=== PATIENT | female | born 1995 | race Caucasian/White ===

== ENCOUNTER 2018-10-18 11:53 | Emergency (ER) | payer SELFPAY ==
[~2018-10-18] VITALS: Ht 160 cm; Wt 90.7 kg
[2018-10-18 12:15] VITALS: BP 143/88
--- NOTE | 2018-10-18 12:28 | PHYS DOC ---
Past Medical History Past Medical History: No Pertinent History Past Surgical History: No Surgical History Alcohol Use: None Drug Use: None Adult General Chief Complaint Chief Complaint: PAIN ON URINATION HPI HPI Patient is a 23 year old female presents to the ED complaining of dysuria 2 days ago. Patient states that she's had suprapubic abdominal pain. Describes the pain as cramping. Rates the pain as 4 out 10. Patient states that she's had difficulty urinating. Denies dysuria, vaginal discharge/bleeding, STD exposure, diarrhea, chest pain, shortness of breath or fever. Review of Systems Review of Systems Constitutional: Denies fever or chills [] Eyes: Denies change in visual acuity, redness, or eye pain [] HENT: Denies nasal congestion or sore throat [] Respiratory: Denies cough or shortness of breath [] Cardiovascular: No additional information not addressed in HPI [] GI: Denies abdominal pain, nausea, vomiting, bloody stools or diarrhea [] : Complains of dysuria. Denies hematuria [] Musculoskeletal: Denies back pain or joint pain [] Integument: Denies rash or skin lesions [] Neurologic: Denies headache, focal weakness or sensory changes [] All other systems were reviewed and found to be within normal limits, except as documented in this note. Physical Exam Physical Exam Constitutional: Well developed, well nourished, no acute distress, non-toxic appearance. [] HENT: Normocephalic, atraumatic Cardiovascular:Heart rate regular rhythm, no murmur [] Lungs & Thorax: Bilateral breath sounds clear to auscultation [] Abdomen: Bowel sounds normal, soft, no tenderness, no masses, no pulsatile masses. [] Skin: Warm, dry, no erythema, no rash. [] Back: No tenderness, no CVA tenderness. [] Neurologic: Alert and oriented X 3, normal motor function, normal sensory function, no focal deficits noted. [] Psychologic: Affect normal, judgement normal, mood normal. [] Current Patient Data Vital Signs Vital Signs Date Time Temp Pulse Resp B/P (MAP) Pulse Ox O2 Delivery O2 Flow Rate FiO2 10/18/18 12:15 97.4 71 20 143/88 (106) 95 Room Air 97.4 EKG EKG [] Radiology/Procedures Radiology/Procedures [] Course & Med Decision Making Course & Med Decision Making Pertinent Labs and Imaging studies reviewed. (See chart for details) []Patient had a drink of water in the ED and then told nurse she could not urinate and wanted to leave. Patient signed out AMA. Epi Disclaimer Epi Disclaimer This electronic medical record was generated, in whole or in part, using a voice recognition dictation system. Departure Departure Impression: Primary Impression: Urinary problem in female Disposition: 07 AGAINST MEDICAL ADVICE Condition: STABLE Referrals: NO PCP (PCP) MERCEDES CHA Oct 18, 2018 12:28
== END 2018-10-18 12:59 | disposition left against medical advice (07) ==
LOC: ER 11:53
DX: N39.9 Disorder of urinary system, unspecified (principal); R10.30 Lower abdominal pain, unspecified
CPT/HCPCS: 99281; 99282

== ENCOUNTER 2018-10-30 16:58 | Emergency (ER) | payer SELFPAY ==
[~2018-10-30] VITALS: Ht 160 cm; Wt 90.7 kg
[2018-10-30 17:02] VITALS: BP 140/72
[2018-10-30] MEDS ORDERED: ACETAMINOPHEN 500 MG TABLET PO ONE (17:15)
[2018-10-30] MEDS ORDERED: IBUPROFEN 200 MG TABLET. PO ONE (17:15)
[2018-10-30] MEDS ORDERED: AMOXICILLIN 250 MG CAPSULE. PO ONE (17:15)
[2018-10-30] MEDS ORDERED: LIDOCAINE 2% VISCOUS 15 ML SOLUTION. SWSW ONE (17:15)
[2018-10-30] MEDS ORDERED: predniSONE 10 MG TABLET PO ONE (17:15)
[2018-10-30] MEDS ORDERED: PRED50TA PO (17:21)
[2018-10-30] MEDS ORDERED: AMOX875T PO (17:21)
--- NOTE | 2018-10-30 17:22 | PHYS DOC ---
Past Medical History Past Medical History: No Pertinent History Past Surgical History: No Surgical History Additional Information: 1.5 PPD Alcohol Use: None Drug Use: None Adult General Chief Complaint Chief Complaint: SORE THROAT HPI HPI Patient is a 23 year old female who presents to the ED today with complaints of sore throat and subjective fevers for 2 days. Denies any cough or congestion. Review of Systems Review of Systems Constitutional: Reports fever Eyes: Denies change in visual acuity, redness, or eye pain [] HENT: Reports sore throat. Denies nasal congestion Respiratory: Denies cough or shortness of breath [] Cardiovascular: No additional information not addressed in HPI [] GI: Denies abdominal pain, nausea, vomiting, bloody stools or diarrhea [] : Denies dysuria or hematuria [] Musculoskeletal: Denies back pain or joint pain [] Integument: Denies rash or skin lesions [] Neurologic: Denies headache, focal weakness or sensory changes [] All other systems were reviewed and found to be within normal limits, except as documented in this note. Current Medications Current Medications Current Medications Medications (Trade) Dose Ordered Sig/Naomi Start Time Stop Time Status Last Admin Dose Admin Acetaminophen (Tylenol) 1,000 mg 1X ONCE 10/30/18 17:15 10/30/18 17:16 UNV Amoxicillin (Amoxil) 1,000 mg 1X ONCE 10/30/18 17:15 10/30/18 17:16 UNV Ibuprofen (Motrin) 600 mg 1X ONCE 10/30/18 17:15 10/30/18 17:16 UNV Lidocaine HCl (Viscous Lidocaine) 15 ml 1X ONCE 10/30/18 17:15 10/30/18 17:16 UNV Prednisone (Prednisone) 50 mg 1X ONCE 10/30/18 17:15 10/30/18 17:16 UNV Allergies Allergies Allergies Coded Allergies Type Severity Reaction Last Updated Verified No Known Drug Allergies 10/30/18 No Physical Exam Physical Exam Constitutional: Well developed, well nourished, no acute distress, non-toxic appearance. [] HENT: Normocephalic, atraumatic, bilateral external ears normal, oropharynx moist, no oral exudates, nose normal. [] Midline uvula. +3 tonsils with mild erythema and exudate bilaterally. +2 anterior cervical adenopathy. Airway is open. Patient tolerating secretions. Eyes: PERRLA, EOMI, conjunctiva normal, no discharge. [] Neck: Normal range of motion, no tenderness, supple, no stridor. [] Cardiovascular:Heart rate regular rhythm, no murmur [] Lungs & Thorax: Bilateral breath sounds clear to auscultation [] Abdomen: Bowel sounds normal, soft, no tenderness, no masses, no pulsatile masses. [] Skin: Warm, dry, no erythema, no rash. [] Back: No tenderness, no CVA tenderness. [] Extremities: No tenderness, no cyanosis, no clubbing, ROM intact, no edema. [] Neurologic: Alert and oriented X 3, normal motor function, normal sensory function, no focal deficits noted. [] Psychologic: Affect normal, judgement normal, mood normal. [] Current Patient Data Vital Signs Vital Signs Date Time Temp Pulse Resp B/P (MAP) Pulse Ox O2 Delivery O2 Flow Rate FiO2 10/30/18 17:02 102.1 124 20 140/72 (94) 98 Room Air 102.1 EKG EKG [] Radiology/Procedures Radiology/Procedures [] Course & Med Decision Making Course & Med Decision Making Pertinent Labs and Imaging studies reviewed. (See chart for details) This is a 23-year-old female patient in the ED with physical exam consistent of tonsillitis, she also has a fever temperature 102.1. Was given Tylenol Motrin and started on amoxicillin in the ED. Also given prednisone. Discharged to home with prednisone and amoxicillin. Saltwater gargles recommended. Tylenol/Motrin for pain or fever. Dragon Disclaimer Dragon Disclaimer This electronic medical record was generated, in whole or in part, using a voice recognition dictation system. Departure Departure Impression: Primary Impression: Acute tonsillitis Additional Impression: Fever Disposition: HOME, SELF-CARE Condition: STABLE Referrals: NO PCP (PCP) BRYCE SULLIVAN MD follow up in 1 week Patient Instructions: Tonsillitis Additional Instructions: You have acute tonsillitis and a fever. We put you on antibiotics, ensure you complete them. Take Tylenol/Motrin as needed for pain or fever. Use saltwater gargles for sore throat. Take the prescribed prednisone until completed. Follow- up with your own doctor the provided ENT in 1-2 weeks. Come back to the ED at any point symptoms worsen. Scripts Amoxicillin (AMOXICILLIN) 875 Mg Tablet 1 TAB PO BID, #20 TAB Prov: DILCIA HARE MOUNTING MACHINE OPERATOR 10/30/18 Prednisone (PREDNISONE) 50 Mg Tablet 1 TAB PO DAILY, #5 TAB Prov: DILCIA HARE MOUNTING MACHINE OPERATOR 10/30/18 Problem Qualifiers Primary Impression: Acute tonsillitis Pharyngitis/tonsillitis etiology: unspecified etiology Qualified Codes: J03.90 - Acute tonsillitis, unspecified Additional Impression: Fever Fever type: unspecified Qualified Codes: R50.9 - Fever, unspecified DILCIA HARE MOUNTING MACHINE OPERATOR Oct 30, 2018 17:22
== END 2018-10-30 17:51 | disposition home or self-care (01) ==
LOC: ER 16:58
DX: J03.90 Acute tonsillitis, unspecified (principal); F17.200 Nicotine dependence, unspecified, uncomplicated
CPT/HCPCS: 99284; J7512

== ENCOUNTER 2018-11-10 20:28 | Emergency (ER) | payer SELFPAY ==
[~2018-11-10] VITALS: Ht 162.6 cm; Wt 90.7 kg
[~2018-11-10 20:28] MED LIST: AMOX875T PO; PRED50TA PO
[2018-11-10 20:43] VITALS: BP 133/76
[2018-11-10] MEDS ORDERED: CLIN150C14 PO (20:59)
--- NOTE | 2018-11-10 20:59 | PHYS DOC ---
Past Medical History Past Medical History: No Pertinent History Past Surgical History: No Surgical History Alcohol Use: None Drug Use: None Adult General Chief Complaint Chief Complaint: ABSCESS HPI HPI Patient is a 23 year old female who presents to the ED today with periorbital cellulitis that began after she took you asked her right upper eyebrow week ago. Denies any vision loss. Review of Systems Review of Systems Constitutional: Denies fever or chills [] Eyes: Reports periorbital cellulitis. Denies change in visual acuity, redness, or eye pain [] Neurologic: Denies headache, focal weakness or sensory changes [] All other systems were reviewed and found to be within normal limits, except as documented in this note. Current Medications Current Medications Current Medications Medications (Trade) Dose Ordered Sig/Naomi Start Time Stop Time Status Last Admin Dose Admin Ceftriaxone Sodium (Rocephin Im) 1 gm 1X ONCE 11/10/18 21:15 11/10/18 21:16 Clindamycin HCl (Cleocin) 450 mg 1X ONCE 11/10/18 21:15 11/10/18 21:16 Allergies Allergies Allergies Coded Allergies Type Severity Reaction Last Updated Verified No Known Drug Allergies 10/30/18 No Physical Exam Physical Exam Constitutional: Well developed, well nourished, no acute distress, non-toxic appearance. [] HENT: Normocephalic, atraumatic, bilateral external ears normal, oropharynx moist, no oral exudates, nose normal. [] Eyes: Right upper eyebrow lateral aspect with scarring consistent with piercing. There is some mild periorbital cellulitis noted around the right upper and lower eyelid. There is no infection in the eye/conjunctiva. There is no entrapment syndrome. PERRLA, EOMI, conjunctiva normal, no discharge. [] Back: No tenderness, no CVA tenderness. [] Extremities: No tenderness, no cyanosis, no clubbing, ROM intact, no edema. [] Neurologic: Alert and oriented X 3, normal motor function, normal sensory function, no focal deficits noted. [] Psychologic: Affect normal, judgement normal, mood normal. [] Current Patient Data Vital Signs Vital Signs Date Time Temp Pulse Resp B/P (MAP) Pulse Ox O2 Delivery O2 Flow Rate FiO2 11/10/18 20:43 98.2 90 16 133/76 (95) 97 Room Air 98.2 EKG EKG [] Radiology/Procedures Radiology/Procedures [] Course & Med Decision Making Course & Med Decision Making Pertinent Labs and Imaging studies reviewed. (See chart for details) This is a 23-year-old female patient who presents to the ED today with right eye periorbital cellulitis from a piercing she had on the right upper eyebrow a week ago. There is no infection in the conjunctiva. There is no entrapment syndrome. Tetanus was updated. Given Rocephin IM in the emergency room, started on clindamycin by mouth in the emergency room. Discharged at home with clindamycin. Instructed not to smith right upper eyebrow until the infection has completely cleared out. Instructed to return to the ED at any point symptoms worsen. Dragon Disclaimer Dragon Disclaimer This electronic medical record was generated, in whole or in part, using a voice recognition dictation system. Departure Departure Impression: Primary Impression: Periorbital cellulitis of right eye Disposition: HOME, SELF-CARE Condition: STABLE Referrals: NO PCP (PCP) TOBY GONZALEZ MD follow up in 1-2 weeks Patient Instructions: Orbital Cellulitis Additional Instructions: You were seen for infection around your eye from [place], please do not appears this area until this infection is completely cleared out. Please take the prescribed antibiotics until completed. Keep the area clean and dry. You can wash this area with mild soap twice a day, please apply warm compresses to the area twice a day. Scripts Clindamycin Hcl (CLINDAMYCIN HCL) 150 Mg Capsule 3 CAP PO TID, #90 CAP Prov: DILCIA HARE APRN 11/10/18 DICLIA HARE APRN Nov 10, 2018 20:59
[2018-11-10] MEDS ORDERED: cefTRIAXone IM 1 GM VIAL IM ONE (21:15)
[2018-11-10] MEDS ORDERED: CLINDAMYCIN HCL 150 MG CAPSULE. PO ONE (21:15)
[2018-11-10] MEDS ORDERED: DIPHTH,PERTUSS(ACELL),TET TOX 0.5 ML DISP.SYRIN. VAX IM ONE (21:30)
== END 2018-11-10 21:07 | disposition home or self-care (01) ==
LOC: ER 20:28
DX: L03.213 Periorbital cellulitis (principal)
CPT/HCPCS: 90471; 90715; 96372; 99284; J0696

== ENCOUNTER 2018-12-19 12:04 | Observation (INO) | payer SELFPAY ==
[~2018-12-19] VITALS: Ht 162.6 cm; Wt 102.5 kg
[~2018-12-19 12:04] MED LIST changes: +CLIN150C14 PO
[2018-12-19] MEDS ORDERED: IV NORMAL SALINE 1000ML BAG 1,000 ML IV ONE (13:30)
[2018-12-19] MEDS ORDERED: ONDANSETRON PF 4 MG/2 ML VIAL. IV ONE (13:30)
[2018-12-19] MEDS ORDERED: FAMOTIDINE 20 MG/2 ML VIAL IVP ONE (13:30)
[2018-12-19 13:40] LABS: BASO # 0.1 x10^3/uL (0.0-0.2); BASO % 0 % (0-3); EOS % 0 % (0-3); HEMATOCRIT 39.9 % (36.0-47.0); HEMOGLOBIN 13.6 g/dL (12.0-15.5); LYMPH # 1.3 x10^3/uL (1.0-4.8); LYMPH % 8 % (24-48); MEAN CORPUSCULAR HEMOGLOBIN 30 pg (25-35); MEAN CORPUSCULAR HGB CONC 34 g/dL (31-37); MEAN CORPUSCULAR VOLUME 87 fL (79-100); MONO # 0.4 x10^3/uL (0.0-1.1); MONO % 3 % (0-9); NEUT # 15.2 x10^3/uL (1.8-7.7); NEUT % 89 % (31-73); PLATELET COUNT 402 x10^3/uL (140-400); RED CELL DISTRIBUTION WIDTH 13.9 % (11.5-14.5); WHITE BLOOD COUNT 17.1 x10^3/uL (4.0-11.0)
[2018-12-19 13:50] LABS: CALCIUM 9.3 mg/dL (8.5-10.1); CREATININE 0.7 mg/dL (0.6-1.0); GFR 104.6; POTASSIUM 4.1 mmol/L (3.5-5.1)
[2018-12-19 13:56] LABS: ALBUMIN 3.5 g/dL (3.4-5.0); ALBUMIN/GLOBULIN RATIO 0.7 (1.0-1.7); TOTAL BILIRUBIN 0.3 mg/dL (0.2-1.0); TOTAL PROTEIN 8.7 g/dL (6.4-8.2)
[2018-12-19 14:24] LABS: % BANDS 3 % (0-9); % BASOS 1 % (0-3); % LYMPHS 10 % (24-48); % MONOS 1 % (0-10); % SEGS 85 % (35-66)
--- NOTE | 2018-12-19 14:25 | RAD ---
Complete abdomen ultrasound study Clinical indications: Epigastric pain. FINDINGS: The pancreas is poorly visualized due to overlying bowel gas. The intrahepatic portion of the IVC is unremarkable. The proximal abdominal aorta is obscured by overlying bowel gas. No focal aneurysmal dilatation of the mid or distal abdominal aorta is seen. The liver measures 17.4 cm in length. There is diffuse attenuation of sound throughout the liver which may be seen with fatty infiltration of the liver. This decreases the sensitivity of sonography to detect focal hepatic lesions. No focal hepatic mass is seen otherwise. 2 cm gallstone is seen within the neck of the gallbladder which does not move with change of position. The gallbladder is not distended and no gallbladder wall thickening or pericholecystic free fluid is evident. The extra hepatic bile duct measures 4.7 mm in caliber which is normal. The length of the right kidney is 11.7 cm and the length of the left kidney is 13.6 cm. No hydronephrosis or renal mass or perinephric fluid collection is seen on either side. The spleen measures 13.5 cm in length which is mildly enlarged. No ascites is seen. IMPRESSION: 2 cm gallstone is seen impacted within the neck of the gallbladder. Fatty infiltration of the liver. Mild splenomegaly. Electronically signed by: Keivn Casarez MD (12/19/2018 2:22 PM) [id number]
[2018-12-19 14:26] LABS: PLT ESTIMATE ADEQUATE (ADEQUATE); POLYCHROMASIA SLIGHT
[2018-12-19 15:14] LABS: BILIRUBIN,URINE NEGATIVE (NEG); CLARITY,URINE CLEAR; COLOR,URINE YELLOW; NITRITE,URINE NEGATIVE (NEG); PROTEIN,URINE 30 mg/dL (NEG-TRACE); UROBILINOGEN,URINE 0.2 mg/dL (0.2 mg/dL)
[2018-12-19 15:21] LABS: BARBITURATES NEG (NEG); BENZODIAZEPINES NEG (NEG); CANNABINOIDS NEG (NEG); COCAINE NEG (NEG); METHADONE NEG (NEG); OPIATES NEG (NEG); PHENCYCLIDINE NEG (NEG); SQUAMOUS EPITHELIAL CELL,UR MOD /LPF
[2018-12-19 15:22] LABS: BACTERIA,URINE 0 /HPF (0-FEW); RBC,URINE OCC /HPF (0-2); WBC,URINE 0 /HPF (0-4)
[2018-12-19 15:26] LABS: AMPHETAMINE/METHAMPHETAMINE NEG (NEG)
--- NOTE | 2018-12-19 15:51 | EKG ---
[facility] [address] [place] [id number] Test Date: 2018-12-19 Test Time: 13:14:47 Pat Name: YAMILA AGUILERA Department: Room: Gender: F Transportation Equipment Painter: : 1995 Requested By: DILCIA HARE Order Number: [id number] Reading MD: Aki Horta MD Measurements Intervals [place] Rate: 74 P: 48 NE: 156 QRS: 21 QRSD: 90 T: 13 QT: 388 QTc: 436 Interpretive Statements SINUS RHYTHM PAC'S Electronically Signed On 12-19-2018 18:12:33 CDT by Aki Horta MD
[2018-12-19] MEDS ORDERED: IOHEXOL 300 MG/ML 50 ML VIAL. ONE (16:09)
[2018-12-19] MEDS ORDERED: GLUCAGON,HUMAN RECOMBINANT 1 MG/ML VIAL. ONE (16:09)
[2018-12-19] MEDS ORDERED: SURGICEL HEMOSTAT 4X8 EACH. ONE (16:09)
[2018-12-19] MEDS ORDERED: IV RINGERS,LACTATED 1000ML 1,000 ML IV SCH (16:30)
[2018-12-19] MEDS ORDERED: ONDANSETRON PF 4 MG/2 ML VIAL. IV PRN ×3 (16:30→18:15)
[2018-12-19] MEDS ORDERED: MORPHINE SULFATE 2 MG/ML VIAL. IV PRN (16:30)
[2018-12-19] MEDS ORDERED: ceFAZolin SODIUM 3 GM in IV DEXTROSE 5% 100ML 100 ML IV PRN (16:30)
[2018-12-19] MEDS ORDERED: PROCHLORPERAZINE 10 MG/2 ML VIAL. IV PRN (16:30)
[2018-12-19] MEDS ORDERED: fentaNYL PF VIAL 100 MCG/2 ML VIAL IV PRN ×3 (16:30→17:00)
[2018-12-19] MEDS ORDERED: HYDROmorphone 2 MG/ML VIAL IV PRN ×2 (16:30→18:15)
[2018-12-19] MEDS ORDERED: fentaNYL PF VIAL 100 MCG/2 ML VIAL ONE (16:31)
[2018-12-19] MEDS ORDERED: PROPOFOL 20 ML IV ONE (16:31)
[2018-12-19] MEDS ORDERED: SUCCINYLCHOLINE 200 MG/10 ML VIAL. ONE (16:32)
[2018-12-19] MEDS ORDERED: ROCURONIUM 50 MG/5 ML VIAL. ONE (16:32)
[2018-12-19] MEDS ORDERED: HYDROCORTISONE SOD SUCC/PF 100 MG/2 ML VIAL. ONE (16:33)
[2018-12-19] MEDS ORDERED: DEXAMETHASONE SOD PHOS 4 MG/ML VIAL ONE (16:36)
[2018-12-19] MEDS ORDERED: LIDOCAINE 2% PF 5 ML VIAL. ONE (16:36)
[2018-12-19] MEDS ORDERED: ONDANSETRON PF 4 MG/2 ML VIAL. ONE (16:36)
--- NOTE | 2018-12-19 16:38 | PDOC1 ---
History and Physical Date of Admission Date of Admission DATE: 12/19/18 TIME: 16:31 Identification/Chief Complaint Chief Complaint right upper quadrant pain Source Source: Chart review, Patient History of Present Illness History of Present Illness Louise is a 23 yo obese female smoker who presented to the ED with RUQ pain. US shows a stone impacted in the neck of the gall bladder. She is brought for cholecystectomy Past Medical History Past Medical History treated with some steroids a month ago for "eye swelling" Cardiovascular: No pertinent hx Pulmonary: No pertinent hx Renal/: No pertinent hx Past Surgical History Past Surgical History: No pertinent history Social History Smoke: <1 pack per day Current Medications Current Medications Current Medications Famotidine (Pepcid Vial) 20 mg 1X ONCE IVP Last administered on 12/19/18at 13:46; Start 12/19/18 at 13:30; Stop 12/19/18 at 13:34; Status DC Ondansetron HCl (Zofran) 4 mg 1X ONCE IV Last administered on 12/19/18at 13:46; Start 12/19/18 at 13:30; Stop 12/19/18 at 13:34; Status DC Sodium Chloride 1,000 ml @ 1,000 mls/hr 1X ONCE IV Last administered on 12/19/18at 13:46; Start 12/19/18 at 13:30; Stop 12/19/18 at 14:29; Status DC Cefazolin Sodium 3 gm/Dextrose 100 ml @ 200 mls/hr 1X PREOP PRN IV PRIOR TO PROCEDURE; Start 12/19/18 at 16:30; Stop 12/19/18 at 23:00 Glucagon (Glucagen) 1 mg STK-MED ONCE .ROUTE ; Start 12/19/18 at 16:09; Stop 12/19/18 at 16:09; Status DC Iohexol (Omnipaque 300 Mg/ml) 50 ml STK-MED ONCE .ROUTE ; Start 12/19/18 at 16:09; Stop 12/19/18 at 16:09; Status DC Cellulose (Surgicel Hemostat 4x8) 1 each STK-MED ONCE .ROUTE ; Start 12/19/18 at 16:09; Stop 12/19/18 at 16:09; Status DC Bupivacaine HCl/ Epinephrine Bitart (Sensorcain-Epi 0.5%-1:410455 Mpf) 30 ml 1X ONCE INJ ; Start 12/19/18 at 16:45; Stop 12/19/18 at 16:46 Ondansetron HCl (Zofran) 4 mg PRN Q6HRS PRN IV NAUSEA/VOMITING; Start 12/19/18 at 16:30; Stop 12/19/18 at 23:00 Fentanyl Citrate (Fentanyl 2ml Vial) 25 mcg PRN Q5MIN PRN IV MILD PAIN 1-3; Start 12/19/18 at 16:30; Stop 12/19/18 at 23:00 Fentanyl Citrate (Fentanyl 2ml Vial) 50 mcg PRN Q5MIN PRN IV MODERATE TO SEVERE PAIN; Start 12/19/18 at 16:30; Stop 12/19/18 at 23:00 Morphine Sulfate (Morphine Sulfate) 1 mg PRN Q10MIN PRN IV SEVERE PAIN 7-10; Start 12/19/18 at 16:30; Stop 12/19/18 at 23:00 Ringer's Solution 1,000 ml @ 30 mls/hr Q24H IV ; Start 12/19/18 at 16:30; Stop 12/19/18 at 23:00 Hydromorphone HCl (Dilaudid) 0.5 mg PRN Q10MIN PRN IV SEV PAIN, Second choice; Start 12/19/18 at 16:30; Stop 12/19/18 at 23:00 Prochlorperazine Edisylate (Compazine) 5 mg PACU PRN PRN IV NAUSEA, MRX1; Start 12/19/18 at 16:30; Stop 12/19/18 at 23:00 Active Scripts Active Clindamycin Hcl 150 Mg Capsule 3 Cap PO TID Amoxicillin 875 Mg Tablet 1 Tab PO BID Prednisone 50 Mg Tablet 1 Tab PO DAILY Allergies Allergies: Coded Allergies: No Known Drug Allergies (Unverified , 10/30/18) ROS Review of System negative with exception of present complaints Physical Exam General: Alert, Cooperative, No acute distress HEENT: Atraumatic, EOMI Lungs: Normal air movement Heart: RRR Abdomen: Soft, Other (mildly TTP in the RUQ) Extremities: No clubbing Skin: Other (warm, dry) Vitals Vitals Vital Signs Date Time Temp Pulse Resp B/P (MAP) Pulse Ox O2 Delivery O2 Flow Rate FiO2 12/19/18 16:00 68 18 133/68 (89) 99 Room Air 8/26/19 13:17 98.3 98.3 Labs Labs Laboratory Tests Test 12/19/18 13:15 12/19/18 15:00 12/19/18 15:02 White Blood Count 17.1 x10^3/uL (4.0-11.0) Red Blood Count 4.60 x10^6/uL (3.50-5.40) Hemoglobin 13.6 g/dL (12.0-15.5) Hematocrit 39.9 % (36.0-47.0) Mean Corpuscular Volume 87 fL (79-100) Mean Corpuscular Hemoglobin 30 pg (25-35) Mean Corpuscular Hemoglobin Concent 34 g/dL (31-37) Red Cell Distribution Width 13.9 % (11.5-14.5) Platelet Count 402 x10^3/uL (140-400) Neutrophils (%) (Auto) 89 % (31-73) Lymphocytes (%) (Auto) 8 % (24-48) Monocytes (%) (Auto) 3 % (0-9) Eosinophils (%) (Auto) 0 % (0-3) Basophils (%) (Auto) 0 % (0-3) Neutrophils # (Auto) 15.2 x10^3/uL (1.8-7.7) Lymphocytes # (Auto) 1.3 x10^3/uL (1.0-4.8) Monocytes # (Auto) 0.4 x10^3/uL (0.0-1.1) Eosinophils # (Auto) 0.0 x10^3/uL (0.0-0.7) Basophils # (Auto) 0.1 x10^3/uL (0.0-0.2) Segmented Neutrophils % 85 % (35-66) Band Neutrophils % 3 % (0-9) Lymphocytes % 10 % (24-48) Monocytes % 1 % (0-10) Basophils % 1 % (0-3) Platelet Estimate Adequate (ADEQUATE) Polychromasia Slight Sodium Level 138 mmol/L (136-145) Potassium Level 4.1 mmol/L (3.5-5.1) Chloride Level 102 mmol/L (98-107) Carbon Dioxide Level 26 mmol/L (21-32) Anion Gap 10 (6-14) Blood Urea Nitrogen 11 mg/dL (7-20) Creatinine 0.7 mg/dL (0.6-1.0) Estimated GFR (Cockcroft-Gault) 104.6 BUN/Creatinine Ratio 16 (6-20) Glucose Level 136 mg/dL (70-99) Calcium Level 9.3 mg/dL (8.5-10.1) Total Bilirubin 0.3 mg/dL (0.2-1.0) Aspartate Amino Transf (AST/SGOT) 25 U/L (15-37) Alanine Aminotransferase (ALT/SGPT) 14 U/L (14-59) Alkaline Phosphatase 104 U/L (46-116) Total Protein 8.7 g/dL (6.4-8.2) Albumin 3.5 g/dL (3.4-5.0) Albumin/Globulin Ratio 0.7 (1.0-1.7) Lipase 80 U/L (73-393) Ethyl Alcohol Level < 10 mg/dL (0-10) Urine Collection Type Unknown Urine Color Yellow Urine Clarity Clear Urine pH 6.0 Urine Specific [place] >=1.030 Urine Protein 30 mg/dL (NEG-TRACE) Urine Glucose (UA) Negative mg/dL (NEG) Urine Ketones (Stick) Negative mg/dL (NEG) Urine Blood Trace (NEG) Urine Nitrite Negative (NEG) Urine Bilirubin Negative (NEG) Urine Urobilinogen Dipstick 0.2 mg/dL (0.2 mg/dL) Urine Leukocyte Esterase Negative (NEG) Urine RBC Occ /HPF (0-2) Urine WBC 0 /HPF (0-4) Urine Squamous Epithelial Cells Mod /LPF Urine Bacteria 0 /HPF (0-FEW) Urine Mucus Marked /LPF Urine Opiates Screen Neg (NEG) Urine Methadone Screen Neg (NEG) Urine Barbiturates Neg (NEG) Urine Phencyclidine Screen Neg (NEG) Urine Amphetamine/Methamphetamine Neg (NEG) Urine Benzodiazepines Screen Neg (NEG) Urine Cocaine Screen Neg (NEG) Urine Cannabinoids Screen Neg (NEG) Urine Ethyl Alcohol Neg (NEG) Bedside Urine HCG, Qualitative Hcg negative (Negative) Laboratory Tests Test 12/19/18 13:15 12/19/18 15:00 12/19/18 15:02 White Blood Count 17.1 x10^3/uL (4.0-11.0) Red Blood Count 4.60 x10^6/uL (3.50-5.40) Hemoglobin 13.6 g/dL (12.0-15.5) Hematocrit 39.9 % (36.0-47.0) Mean Corpuscular Volume 87 fL (79-100) Mean Corpuscular Hemoglobin 30 pg (25-35) Mean Corpuscular Hemoglobin Concent 34 g/dL (31-37) Red Cell Distribution Width 13.9 % (11.5-14.5) Platelet Count 402 x10^3/uL (140-400) Neutrophils (%) (Auto) 89 % (31-73) Lymphocytes (%) (Auto) 8 % (24-48) Monocytes (%) (Auto) 3 % (0-9) Eosinophils (%) (Auto) 0 % (0-3) Basophils (%) (Auto) 0 % (0-3) Neutrophils # (Auto) 15.2 x10^3/uL (1.8-7.7) Lymphocytes # (Auto) 1.3 x10^3/uL (1.0-4.8) Monocytes # (Auto) 0.4 x10^3/uL (0.0-1.1) Eosinophils # (Auto) 0.0 x10^3/uL (0.0-0.7) Basophils # (Auto) 0.1 x10^3/uL (0.0-0.2) Segmented Neutrophils % 85 % (35-66) Band Neutrophils % 3 % (0-9) Lymphocytes % 10 % (24-48) Monocytes % 1 % (0-10) Basophils % 1 % (0-3) Platelet Estimate Adequate (ADEQUATE) Polychromasia Slight Sodium Level 138 mmol/L (136-145) Potassium Level 4.1 mmol/L (3.5-5.1) Chloride Level 102 mmol/L (98-107) Carbon Dioxide Level 26 mmol/L (21-32) Anion Gap 10 (6-14) Blood Urea Nitrogen 11 mg/dL (7-20) Creatinine 0.7 mg/dL (0.6-1.0) Estimated GFR (Cockcroft-Gault) 104.6 BUN/Creatinine Ratio 16 (6-20) Glucose Level 136 mg/dL (70-99) Calcium Level 9.3 mg/dL (8.5-10.1) Total Bilirubin 0.3 mg/dL (0.2-1.0) Aspartate Amino Transf (AST/SGOT) 25 U/L (15-37) Alanine Aminotransferase (ALT/SGPT) 14 U/L (14-59) Alkaline Phosphatase 104 U/L (46-116) Total Protein 8.7 g/dL (6.4-8.2) Albumin 3.5 g/dL (3.4-5.0) Albumin/Globulin Ratio 0.7 (1.0-1.7) Lipase 80 U/L (73-393) Ethyl Alcohol Level < 10 mg/dL (0-10) Urine Collection Type Unknown Urine Color Yellow Urine Clarity Clear Urine pH 6.0 Urine Specific [place] >=1.030 Urine Protein 30 mg/dL (NEG-TRACE) Urine Glucose (UA) Negative mg/dL (NEG) Urine Ketones (Stick) Negative mg/dL (NEG) Urine Blood Trace (NEG) Urine Nitrite Negative (NEG) Urine Bilirubin Negative (NEG) Urine Urobilinogen Dipstick 0.2 mg/dL (0.2 mg/dL) Urine Leukocyte Esterase Negative (NEG) Urine RBC Occ /HPF (0-2) Urine WBC 0 /HPF (0-4) Urine Squamous Epithelial Cells Mod /LPF Urine Bacteria 0 /HPF (0-FEW) Urine Mucus Marked /LPF Urine Opiates Screen Neg (NEG) Urine Methadone Screen Neg (NEG) Urine Barbiturates Neg (NEG) Urine Phencyclidine Screen Neg (NEG) Urine Amphetamine/Methamphetamine Neg (NEG) Urine Benzodiazepines Screen Neg (NEG) Urine Cocaine Screen Neg (NEG) Urine Cannabinoids Screen Neg (NEG) Urine Ethyl Alcohol Neg (NEG) Bedside Urine HCG, Qualitative Hcg negative (Negative) Images Images US done in the ED is reviewed VTE Prophylaxis Ordered VTE Prophylaxis Devices: Yes VTE Pharmacological Prophylaxi: No Assessment/Plan Assessment/Plan symptomatic cholelithiasis obesity tobacco use offered lap ralph explained risks to Louise and her sister who was standing at the bedside including but not limited to bleeding, infection, injury to bowel, liver or bile ducts with need for further interventions, possible open, diarrhea, drain she will proceed BRYAN GODOY MD Dec 19, 2018 16:38
[2018-12-19] MEDS ORDERED: BUPIVACAINE-EPI 0.5%-1:200000 MPF 30 ML VIAL. INJ ONE (16:45)
[2018-12-19] MEDS ORDERED: SEVOFLURANE 31 TO 60 MINUTES. IH ONE (16:50)
[2018-12-19] MEDS ORDERED: GLYCOPYRROLATE 1 MG/5 ML VIAL. ONE (16:58)
[2018-12-19] MEDS ORDERED: NEOSTIGMINE METHYLSULFATE 5 MG/5 ML SYRINGE. ONE (16:58)
[2018-12-19] MEDS ORDERED: ESMOLOL 100 MG/10 ML VIAL. IVP ONE (17:05)
--- NOTE | 2018-12-19 17:19 | PHYS DOC ---
Past Medical History Past Medical History: No Pertinent History Past Surgical History: No Surgical History Alcohol Use: None Drug Use: None Adult General Chief Complaint Chief Complaint: ABDOMINAL PAIN HPI HPI Patient is a 23 year old female current smoker who presents to the ED today complaining of moderate epigastric abdominal pain radiating to the right upper quadrant, symptoms began at 5 AM this morning. Also complaining of nausea and vomiting. Denies any relieving or exacerbating factors to her symptoms or pain. Review of Systems Review of Systems Constitutional: Denies fever or chills [] Eyes: Denies change in visual acuity, redness, or eye pain [] HENT: Denies nasal congestion or sore throat [] Respiratory: Denies cough or shortness of breath [] Cardiovascular: No additional information not addressed in HPI [] GI: Reports right upper quadrant abdominal pain with nausea and vomiting, denies bloody stools or diarrhea [] : Denies dysuria or hematuria [] Musculoskeletal: Denies back pain or joint pain [] Integument: Denies rash or skin lesions [] Neurologic: Denies headache, focal weakness or sensory changes [] All other systems were reviewed and found to be within normal limits, except as documented in this note. Current Medications Current Medications Current Medications Medications (Trade) Dose Ordered Sig/Naomi Start Time Stop Time Status Last Admin Dose Admin Bupivacaine HCl/ Epinephrine Bitart (Sensorcain-Epi 0.5%-1:219260 Mpf) 30 ml 1X ONCE 12/19/18 16:45 12/19/18 16:46 DC Cefazolin Sodium 3 gm/Dextrose 100 ml @ 200 mls/hr 1X PREOP PRN 12/19/18 16:30 12/19/18 23:00 12/19/18 17:08 200 MLS/HR Cellulose (Surgicel Hemostat 4x8) 1 each STK-MED ONCE 12/19/18 16:09 12/19/18 16:09 DC Dexamethasone Sodium Phosphate (Decadron) 4 mg STK-MED ONCE 12/19/18 16:36 12/19/18 16:36 DC Esmolol HCl (Brevibloc) 100 mg STK-MED ONCE 12/19/18 17:05 12/19/18 17:05 DC Famotidine (Pepcid Vial) 20 mg 1X ONCE 12/19/18 13:30 12/19/18 13:34 DC 12/19/18 13:46 20 MG Fentanyl Citrate (Fentanyl 2ml Vial) 50 mcg PRN Q1HR PRN 12/19/18 17:00 12/20/18 16:59 Glucagon (Glucagen) 1 mg STK-MED ONCE 12/19/18 16:09 12/19/18 16:09 DC Glycopyrrolate (Robinul) 1 mg STK-MED ONCE 12/19/18 16:58 12/19/18 16:58 DC Hydrocortisone Sodium Succinate (Solu-CORTEF) 100 mg STK-MED ONCE 12/19/18 16:33 12/19/18 16:33 DC Hydromorphone HCl (Dilaudid) 0.5 mg PRN Q10MIN PRN 12/19/18 16:30 12/19/18 23:00 Iohexol (Omnipaque 300 Mg/ml) 50 ml STK-MED ONCE 12/19/18 16:09 12/19/18 16:09 DC Lidocaine HCl (Lidocaine Pf 2% Vial) 5 ml STK-MED ONCE 12/19/18 16:36 12/19/18 16:36 DC Morphine Sulfate (Morphine Sulfate) 1 mg PRN Q10MIN PRN 12/19/18 16:30 12/19/18 23:00 Neostigmine Methylsulfate (Neostigmine Methylsulfate) 5 mg STK-MED ONCE 12/19/18 16:58 12/19/18 16:58 DC Ondansetron HCl (Zofran) 4 mg PRN Q8HRS PRN 12/19/18 17:00 12/20/18 16:59 Prochlorperazine Edisylate (Compazine) 5 mg PACU PRN PRN 12/19/18 16:30 12/19/18 23:00 Propofol 20 ml @ As Directed STK-MED ONCE 12/19/18 16:31 12/19/18 16:31 DC Ringer's Solution 1,000 ml @ 30 mls/hr Q24H 12/19/18 16:30 12/19/18 23:00 12/19/18 16:31 30 MLS/HR Rocuronium Valentine (Zemuron) 50 mg STK-MED ONCE 12/19/18 16:32 12/19/18 16:32 DC Sevoflurane (Ultane) 30 ml STK-MED ONCE 12/19/18 16:50 12/19/18 16:50 DC Sodium Chloride 1,000 ml @ 1,000 mls/hr 1X ONCE 12/19/18 13:30 12/19/18 14:29 DC 12/19/18 13:46 1,000 MLS/HR Succinylcholine Chloride (Anectine) 200 mg STK-MED ONCE 12/19/18 16:32 12/19/18 16:32 DC Allergies Allergies Allergies Coded Allergies Type Severity Reaction Last Updated Verified No Known Drug Allergies 10/30/18 No Physical Exam Physical Exam Constitutional: Well developed, well nourished, no acute distress, non-toxic appearance. [] HENT: Normocephalic, atraumatic, bilateral external ears normal, oropharynx moist, no oral exudates, nose normal. [] Eyes: PERRLA, EOMI, conjunctiva normal, no discharge. [] Neck: Normal range of motion, no tenderness, supple, no stridor. [] Cardiovascular:Heart rate regular rhythm, no murmur [] Lungs & Thorax: Bilateral breath sounds clear to auscultation [] Abdomen: Bowel sounds normal, soft, mild tenderness on palpation of the midepigastric region as well as right upper quadrant with positive Horner sign, no right lower quadrant tenderness on exam, negative psoas sign, negative obturator sign, patient is guarding the epigastric and right upper quadrant, no masses, no pulsatile masses. [] Skin: Warm, dry, no erythema, no rash. [] Back: No tenderness, no CVA tenderness. [] Extremities: No tenderness, no cyanosis, no clubbing, ROM intact, no edema. [] Neurologic: Alert and oriented X 3, normal motor function, normal sensory function, no focal deficits noted. [] Psychologic: Affect normal, judgement normal, mood normal. [] Current Patient Data Vital Signs Vital Signs Date Time Temp Pulse Resp B/P (MAP) Pulse Ox O2 Delivery O2 Flow Rate FiO2 12/19/18 16:25 98.4 85 20 138/72 99 Room Air 98.4 Lab Values Laboratory Tests Test 12/19/18 13:15 12/19/18 15:00 12/19/18 15:02 White Blood Count 17.1 x10^3/uL (4.0-11.0) H Red Blood Count 4.60 x10^6/uL (3.50-5.40) Hemoglobin 13.6 g/dL (12.0-15.5) Hematocrit 39.9 % (36.0-47.0) Mean Corpuscular Volume 87 fL (79-100) Mean Corpuscular Hemoglobin 30 pg (25-35) Mean Corpuscular Hemoglobin Concent 34 g/dL (31-37) Red Cell Distribution Width 13.9 % (11.5-14.5) Platelet Count 402 x10^3/uL (140-400) H Neutrophils (%) (Auto) 89 % (31-73) H Lymphocytes (%) (Auto) 8 % (24-48) L Monocytes (%) (Auto) 3 % (0-9) Eosinophils (%) (Auto) 0 % (0-3) Basophils (%) (Auto) 0 % (0-3) Neutrophils # (Auto) 15.2 x10^3/uL (1.8-7.7) H Lymphocytes # (Auto) 1.3 x10^3/uL (1.0-4.8) Monocytes # (Auto) 0.4 x10^3/uL (0.0-1.1) Eosinophils # (Auto) 0.0 x10^3/uL (0.0-0.7) Basophils # (Auto) 0.1 x10^3/uL (0.0-0.2) Segmented Neutrophils % 85 % (35-66) H Band Neutrophils % 3 % (0-9) Lymphocytes % 10 % (24-48) L Monocytes % 1 % (0-10) Basophils % 1 % (0-3) Platelet Estimate Adequate (ADEQUATE) Polychromasia Slight Sodium Level 138 mmol/L (136-145) Potassium Level 4.1 mmol/L (3.5-5.1) Chloride Level 102 mmol/L (98-107) Carbon Dioxide Level 26 mmol/L (21-32) Anion Gap 10 (6-14) Blood Urea Nitrogen 11 mg/dL (7-20) Creatinine 0.7 mg/dL (0.6-1.0) Estimated GFR (Cockcroft-Gault) 104.6 BUN/Creatinine Ratio 16 (6-20) Glucose Level 136 mg/dL (70-99) H Calcium Level 9.3 mg/dL (8.5-10.1) Total Bilirubin 0.3 mg/dL (0.2-1.0) Aspartate Amino Transferase (AST) 25 U/L (15-37) Alanine Aminotransferase (ALT) 14 U/L (14-59) Alkaline Phosphatase 104 U/L (46-116) Total Protein 8.7 g/dL (6.4-8.2) H Albumin 3.5 g/dL (3.4-5.0) Albumin/Globulin Ratio 0.7 (1.0-1.7) L Lipase 80 U/L (73-393) Ethyl Alcohol Level < 10 mg/dL (0-10) Urine Collection Type Unknown Urine Color Yellow Urine Clarity Clear Urine pH 6.0 Urine Specific [place] >=1.030 Urine Protein 30 mg/dL (NEG-TRACE) Urine Glucose (UA) Negative mg/dL (NEG) Urine Ketones (Stick) Negative mg/dL (NEG) Urine Blood Trace (NEG) Urine Nitrite Negative (NEG) Urine Bilirubin Negative (NEG) Urine Urobilinogen Dipstick 0.2 mg/dL (0.2 mg/dL) Urine Leukocyte Esterase Negative (NEG) Urine RBC Occ /HPF (0-2) Urine WBC 0 /HPF (0-4) Urine Squamous Epithelial Cells Mod /LPF Urine Bacteria 0 /HPF (0-FEW) Urine Mucus Marked /LPF Urine Opiates Screen Neg (NEG) Urine Methadone Screen Neg (NEG) Urine Barbiturates Neg (NEG) Urine Phencyclidine Screen Neg (NEG) Urine Amphetamine/Methamphetamine Neg (NEG) Urine Benzodiazepines Screen Neg (NEG) Urine Cocaine Screen Neg (NEG) Urine Cannabinoids Screen Neg (NEG) Urine Ethyl Alcohol Neg (NEG) POC Urine HCG, Qualitative Hcg negative (Negative) Laboratory Tests 12/19/18 13:15 Laboratory Tests 12/19/18 13:15 EKG EKG 1318 Interpreted by sinus rhythm HR 74 no STEMI[] Radiology/Procedures Radiology/Procedures []PROCEDURE: ABDOMEN COMPLETE Complete abdomen ultrasound study Clinical indications: Epigastric pain. FINDINGS: The pancreas is poorly visualized due to overlying bowel gas. The intrahepatic portion of the IVC is unremarkable. The proximal abdominal aorta is obscured by overlying bowel gas. No focal aneurysmal dilatation of the mid or distal abdominal aorta is seen. The liver measures 17.4 cm in length. There is diffuse attenuation of sound throughout the liver which may be seen with fatty infiltration of the liver. This decreases the sensitivity of sonography to detect focal hepatic lesions. No focal hepatic mass is seen otherwise. 2 cm gallstone is seen within the neck of the gallbladder which does not move with change of position. The gallbladder is not distended and no gallbladder wall thickening or pericholecystic free fluid is evident. The extra hepatic bile duct measures 4.7 mm in caliber which is normal. The length of the right kidney is 11.7 cm and the length of the left kidney is 13.6 cm. No hydronephrosis or renal mass or perinephric fluid collection is seen on either side. The spleen measures 13.5 cm in length which is mildly enlarged. No ascites is seen. IMPRESSION: 2 cm gallstone is seen impacted within the neck of the gallbladder. Fatty infiltration of the liver. Mild splenomegaly. Electronically signed by: Azam Casarez MD (12/19/2018 2:22 PM) [id number] DICTATED and SIGNED BY: AZAM CASAREZ MD DATE: 12/19/18 1422 Course & Med Decision Making Course & Med Decision Making Pertinent Labs and Imaging studies reviewed. (See chart for details) This is a 23-year-old female patient presenting to the ED today with epigastric and right upper quadrant abdominal pain that began this morning. CBC with a WBC of 17.1 and a left shift, CMP would not acute findings, urine analysis is negative for infection. Abdominal ultrasound noted for 2 cm gallstone impacted within the neck or the gallbladder. [address] Topete who stated he will take patient to surgery sometime scott Spoke to Dr. Riggs who accepted patient for admission Dr. Topete later talked to Dr. Riggs and he became the admitting physician. Dragon Disclaimer Dragon Disclaimer This electronic medical record was generated, in whole or in part, using a voice recognition dictation system. Departure Departure Impression: Primary Impression: Gall stone Disposition: ADMITTED INPATIENT Condition: STABLE Referrals: NO PCP (PCP) Problem Qualifiers Primary Impression: Gall stone Cholecystitis presence: without cholecystitis Biliary obstruction: without biliary obstruction Qualified Codes: K80.20 - Calculus of gallbladder without cholecystitis without obstruction DILCIA HARE FINISHING PAN OPERATOR Dec 19, 2018 17:19
--- NOTE | 2018-12-19 18:02 | RAD ---
CHOLANGIOGRAM INTRAOPERATIVE History: Intraoperative cholangiogram Comparison: None. Findings: 4 low resolution intraprocedural views from a cholangiogram are submitted. Interpretation is made of submitted images only, exam performed by different physician. Reported fluoroscopy time 0.2 minutes. Images demonstrate introduction of contrast into the cystic duct. No discrete round filling defect is identified of the visualized common bile duct which tapers normally. There is contrast in the duodenum. Impression: 1. No discrete filling defect is demonstrated of the common bile duct. Electronically signed by: Sonido Bolaños MD (12/19/2018 5:59 PM) [facility]
[2018-12-19] MEDS ORDERED: IV NORMAL SALINE 1000ML BAG 1,000 ML IV SCH (18:03)
[2018-12-19] MEDS ORDERED: IV DEXTROSE 5% 250 ML BAG. IV PRN (18:15)
[2018-12-19] MEDS ORDERED: 0.9 % SODIUM CHLORIDE 10 ML DISP.SYRIN. IV PRN (18:15)
[2018-12-19] MEDS ORDERED: oxyCODONE/APAP 5/325 1 TAB TABLET PO PRN (18:15)
[2018-12-19] MEDS ORDERED: diphenhydrAMINE HCL 25 MG CAPSULE PO PRN (18:15)
[2018-12-19] MEDS ORDERED: DEXTROSE 50% 25 GM / 50ML DISP.SYRIN. IV PRN (18:15)
[2018-12-19] MEDS ORDERED: NALOXONE 0.4 MG/ML VIAL. IV PRN (18:15)
--- NOTE | 2018-12-19 18:21 | PDOC ---
BRIEF OPERATIVE NOTE Date: Dec 19, 2018 Pre-Op Diagnosis cholelithiasis Post-Op Diagnosis same with acute cholecystitis Procedure Performed l/s cholecystectomy with cholangiograms Surgeon Efrem Anesthesia Type: General Blood Loss 20cc IV Fluid 500cc Specimens Obtained GB Findings edematous, distended GB, normal grams Complications none Operative Note Wk # [id number] BRYAN GODOY MD Dec 19, 2018 18:21
[2018-12-19] MEDS: oxyCODONE/APAP 5/325 1 TAB TABLET PO PRN (19:46)
--- NOTE | 2018-12-19 20:48 | OP ---
DATE OF SURGERY: 12/19/2018 PREOPERATIVE DIAGNOSIS: Cholelithiasis. POSTOPERATIVE DIAGNOSIS: Cholelithiasis with acute cholecystitis. PROCEDURE: Laparoscopic cholecystectomy with cholangiogram. SURGEON: Kulwant Godoy MD ANESTHESIA: General endotracheal. ESTIMATED BLOOD LOSS: 20 mL. INTRAVENOUS FLUIDS: 500 mL. INDICATIONS: The patient is an obese 23-year-old female smoker with symptomatic gallstone. Ultrasound shows a stone lodged in the neck of the gallbladder. She is brought for cholecystectomy. OPERATIVE FINDINGS: The gallbladder was edematous and distended. Small amount of fluid present in the right upper quadrant. No obvious abnormality seen on inspection of the remainder of the abdomen. DESCRIPTION OF PROCEDURE: The patient brought to the operating suite, given a general endotracheal anesthetic and the abdomen prepped and draped in usual sterile fashion. An infraumbilical incision was infiltrated with local anesthetic, incised and a 5 mm Visiport used to gain access into the abdominal cavity. Pneumoperitoneum established. Camera inserted. Inspection carried out with results as noted above. Under direct vision, the epigastric, midclavicular, and lateral ports were placed. The gallbladder was retracted superolaterally after aspirating approximately 40 mL of bile to allow grasping of the fundus. Omental adhesions were carefully swept off the inferior aspect of the gallbladder, taking care to avoid injury to the adjacent bowel. The cystic artery and cystic duct were identified. The duct was clipped on the gallbladder side. Cholangiograms were made. These were normal. In light of this, the catheter was removed. The cystic duct was clipped and divided, taking care to avoid injury or compromise with common duct. An anterior and posterior branch of the cystic artery were clipped and divided. The gallbladder freed from the bed and placed in an EndoCatch bag. Hemostasis obtained in the fossa with cautery and a small piece of Surgicel. No evidence of bile leak seen. A 19-[place] round Mukund drain brought through the epigastric port out the lateral port, sewn to the skin with a silk stitch and left in the subhepatic space for postoperative drainage. Table returned to level. Gallbladder delivered through the epigastric incision. Epigastric incision was closed with 0 Vicryl suture. Intra-abdominal pressure decreased to 6 cm of water. No bleeding from the epigastric closure or the midclavicular port site after its removal or from the drain site. Abdomen decompressed, camera removed, no bleeding seen. Skin incisions closed with subcuticular 4-0 Monocryl. Steri-Strips and dressings applied. The patient awakened from her anesthetic and taken to the recovery room in satisfactory condition. KULWANT GODOY MD DR: MARGARET/gustavo JOB#: [id number] / [id number]
[2018-12-19] MEDS: POTASSIUM CL 20MEQ-0.45% NACL 1,000 ML IV SCH (20:59)
[2018-12-19] MEDS: DOCUSATE SODIUM 100 MG CAPSULE. PO SCH (20:59)
[2018-12-19] MEDS: NICOTINE 14MG PATCH. TD SCH (22:20)
[2018-12-19 23:00] VITALS: BP 109/43
[2018-12-20 03:00] VITALS: BP 115/50
[2018-12-20] MEDS: POTASSIUM CL 20MEQ-0.45% NACL 1,000 ML IV SCH (04:03)
[2018-12-20 07:00] VITALS: BP 101/66
[2018-12-20] MEDS: DOCUSATE SODIUM 100 MG CAPSULE. PO SCH (08:49)
[2018-12-20] MEDS: NICOTINE 14MG PATCH. TD SCH (08:50)
[2018-12-20] MEDS ORDERED: ENOXAPARIN 40 MG/0.4 ML SYRINGE. SQ SCH (09:00)
[2018-12-20 11:00] VITALS: BP 110/54
--- NOTE | 2018-12-20 11:09 | PDOC ---
SURGICAL PROGRESS NOTE Subjective tolerating diet pain managed Vital Signs Vital Signs Date Time Temp Pulse Resp B/P (MAP) Pulse Ox O2 Delivery O2 Flow Rate FiO2 12/20/18 08:01 Room Air 12/20/18 07:00 97.6 96 14 101/66 (78) 95 97.6 12/19/18 18:31 10 I&O Intake and Output 12/20/18 06:59 Intake Total 2330 ml Output Total 20 ml Balance 2310 ml Intake Oral 630 ml IV Total 1700 ml Output Estimated Blood Loss 20 ml # Voids 3 General: Alert, Oriented X3, Cooperative, No acute distress Abdomen: Soft, Other (ND, lap dressing dry, jm serosang) Labs Laboratory Tests Test 12/19/18 13:15 12/19/18 15:00 12/19/18 15:02 White Blood Count 17.1 x10^3/uL (4.0-11.0) Red Blood Count 4.60 x10^6/uL (3.50-5.40) Hemoglobin 13.6 g/dL (12.0-15.5) Hematocrit 39.9 % (36.0-47.0) Mean Corpuscular Volume 87 fL (79-100) Mean Corpuscular Hemoglobin 30 pg (25-35) Mean Corpuscular Hemoglobin Concent 34 g/dL (31-37) Red Cell Distribution Width 13.9 % (11.5-14.5) Platelet Count 402 x10^3/uL (140-400) Neutrophils (%) (Auto) 89 % (31-73) Lymphocytes (%) (Auto) 8 % (24-48) Monocytes (%) (Auto) 3 % (0-9) Eosinophils (%) (Auto) 0 % (0-3) Basophils (%) (Auto) 0 % (0-3) Neutrophils # (Auto) 15.2 x10^3/uL (1.8-7.7) Lymphocytes # (Auto) 1.3 x10^3/uL (1.0-4.8) Monocytes # (Auto) 0.4 x10^3/uL (0.0-1.1) Eosinophils # (Auto) 0.0 x10^3/uL (0.0-0.7) Basophils # (Auto) 0.1 x10^3/uL (0.0-0.2) Segmented Neutrophils % 85 % (35-66) Band Neutrophils % 3 % (0-9) Lymphocytes % 10 % (24-48) Monocytes % 1 % (0-10) Basophils % 1 % (0-3) Platelet Estimate Adequate (ADEQUATE) Polychromasia Slight Sodium Level 138 mmol/L (136-145) Potassium Level 4.1 mmol/L (3.5-5.1) Chloride Level 102 mmol/L (98-107) Carbon Dioxide Level 26 mmol/L (21-32) Anion Gap 10 (6-14) Blood Urea Nitrogen 11 mg/dL (7-20) Creatinine 0.7 mg/dL (0.6-1.0) Estimated GFR (Cockcroft-Gault) 104.6 BUN/Creatinine Ratio 16 (6-20) Glucose Level 136 mg/dL (70-99) Calcium Level 9.3 mg/dL (8.5-10.1) Total Bilirubin 0.3 mg/dL (0.2-1.0) Aspartate Amino Transf (AST/SGOT) 25 U/L (15-37) Alanine Aminotransferase (ALT/SGPT) 14 U/L (14-59) Alkaline Phosphatase 104 U/L (46-116) Total Protein 8.7 g/dL (6.4-8.2) Albumin 3.5 g/dL (3.4-5.0) Albumin/Globulin Ratio 0.7 (1.0-1.7) Lipase 80 U/L (73-393) Ethyl Alcohol Level < 10 mg/dL (0-10) Urine Collection Type Unknown Urine Color Yellow Urine Clarity Clear Urine pH 6.0 Urine Specific [place] >=1.030 Urine Protein 30 mg/dL (NEG-TRACE) Urine Glucose (UA) Negative mg/dL (NEG) Urine Ketones (Stick) Negative mg/dL (NEG) Urine Blood Trace (NEG) Urine Nitrite Negative (NEG) Urine Bilirubin Negative (NEG) Urine Urobilinogen Dipstick 0.2 mg/dL (0.2 mg/dL) Urine Leukocyte Esterase Negative (NEG) Urine RBC Occ /HPF (0-2) Urine WBC 0 /HPF (0-4) Urine Squamous Epithelial Cells Mod /LPF Urine Bacteria 0 /HPF (0-FEW) Urine Mucus Marked /LPF Urine Opiates Screen Neg (NEG) Urine Methadone Screen Neg (NEG) Urine Barbiturates Neg (NEG) Urine Phencyclidine Screen Neg (NEG) Urine Amphetamine/Methamphetamine Neg (NEG) Urine Benzodiazepines Screen Neg (NEG) Urine Cocaine Screen Neg (NEG) Urine Cannabinoids Screen Neg (NEG) Urine Ethyl Alcohol Neg (NEG) Bedside Urine HCG, Qualitative Hcg negative (Negative) Laboratory Tests Test 12/19/18 13:15 12/19/18 15:00 12/19/18 15:02 White Blood Count 17.1 x10^3/uL (4.0-11.0) Red Blood Count 4.60 x10^6/uL (3.50-5.40) Hemoglobin 13.6 g/dL (12.0-15.5) Hematocrit 39.9 % (36.0-47.0) Mean Corpuscular Volume 87 fL (79-100) Mean Corpuscular Hemoglobin 30 pg (25-35) Mean Corpuscular Hemoglobin Concent 34 g/dL (31-37) Red Cell Distribution Width 13.9 % (11.5-14.5) Platelet Count 402 x10^3/uL (140-400) Neutrophils (%) (Auto) 89 % (31-73) Lymphocytes (%) (Auto) 8 % (24-48) Monocytes (%) (Auto) 3 % (0-9) Eosinophils (%) (Auto) 0 % (0-3) Basophils (%) (Auto) 0 % (0-3) Neutrophils # (Auto) 15.2 x10^3/uL (1.8-7.7) Lymphocytes # (Auto) 1.3 x10^3/uL (1.0-4.8) Monocytes # (Auto) 0.4 x10^3/uL (0.0-1.1) Eosinophils # (Auto) 0.0 x10^3/uL (0.0-0.7) Basophils # (Auto) 0.1 x10^3/uL (0.0-0.2) Segmented Neutrophils % 85 % (35-66) Band Neutrophils % 3 % (0-9) Lymphocytes % 10 % (24-48) Monocytes % 1 % (0-10) Basophils % 1 % (0-3) Platelet Estimate Adequate (ADEQUATE) Polychromasia Slight Sodium Level 138 mmol/L (136-145) Potassium Level 4.1 mmol/L (3.5-5.1) Chloride Level 102 mmol/L (98-107) Carbon Dioxide Level 26 mmol/L (21-32) Anion Gap 10 (6-14) Blood Urea Nitrogen 11 mg/dL (7-20) Creatinine 0.7 mg/dL (0.6-1.0) Estimated GFR (Cockcroft-Gault) 104.6 BUN/Creatinine Ratio 16 (6-20) Glucose Level 136 mg/dL (70-99) Calcium Level 9.3 mg/dL (8.5-10.1) Total Bilirubin 0.3 mg/dL (0.2-1.0) Aspartate Amino Transf (AST/SGOT) 25 U/L (15-37) Alanine Aminotransferase (ALT/SGPT) 14 U/L (14-59) Alkaline Phosphatase 104 U/L (46-116) Total Protein 8.7 g/dL (6.4-8.2) Albumin 3.5 g/dL (3.4-5.0) Albumin/Globulin Ratio 0.7 (1.0-1.7) Lipase 80 U/L (73-393) Ethyl Alcohol Level < 10 mg/dL (0-10) Urine Collection Type Unknown Urine Color Yellow Urine Clarity Clear Urine pH 6.0 Urine Specific [place] >=1.030 Urine Protein 30 mg/dL (NEG-TRACE) Urine Glucose (UA) Negative mg/dL (NEG) Urine Ketones (Stick) Negative mg/dL (NEG) Urine Blood Trace (NEG) Urine Nitrite Negative (NEG) Urine Bilirubin Negative (NEG) Urine Urobilinogen Dipstick 0.2 mg/dL (0.2 mg/dL) Urine Leukocyte Esterase Negative (NEG) Urine RBC Occ /HPF (0-2) Urine WBC 0 /HPF (0-4) Urine Squamous Epithelial Cells Mod /LPF Urine Bacteria 0 /HPF (0-FEW) Urine Mucus Marked /LPF Urine Opiates Screen Neg (NEG) Urine Methadone Screen Neg (NEG) Urine Barbiturates Neg (NEG) Urine Phencyclidine Screen Neg (NEG) Urine Amphetamine/Methamphetamine Neg (NEG) Urine Benzodiazepines Screen Neg (NEG) Urine Cocaine Screen Neg (NEG) Urine Cannabinoids Screen Neg (NEG) Urine Ethyl Alcohol Neg (NEG) Bedside Urine HCG, Qualitative Hcg negative (Negative) Problem List Problems Medical Problems: (1) Gall stone Status: Acute Assessment/Plan s/p ralph dc home remove drain FU 1 week NAOMY PEREZ APRN Dec 20, 2018 11:09
[2018-12-20] MEDS ORDERED: OXYC1TAB15 PO (11:10)
--- NOTE | 2018-12-20 11:12 | DISCH ---
DISCHARGE INSTRUCTIONS Condition on Discharge Condition on Discharge: Stable Activity After Discharge Activity Instructions for Disc: Activity as tolerated Other activity instructions: no lifting > 20 lbsx 2 weeks Driving Instructions after Dis: Do not drive Weight Bearing Status after Di: No restrictions Diet after Discharge Diet after Discharge: Low Fat Wound Incision Care Wound/Incision Care: Change dressing, May get incision wet Other wound/incision instructi: ok to shower, no tub baths x 2 weeks Contacting the after DC Call your doctor for: If your condition worsens Follow-Up Follow up with: Dr Topete 1 week call to schedule [phone] NAOMY PEREZ APRN Dec 20, 2018 11:12
--- NOTE | 2018-12-20 12:45 | NUR ---
Discharge Note: YAMILA AGUILERA Discharge instructions and discharge home medications reviewed with Spouse and a copy given. All questions have been answered and understanding verbalized. The following instructions and handouts were given: discharge instructions, new prescription, education and follow up recommendations. Discontinued lines and drains: Peripheral IV discontinued intact. Patient discharged to Home or Self Care with Family Member via Ambulated off unit by CLINIC CLERK.
[2018-12-20] MEDS: oxyCODONE/APAP 5/325 1 TAB TABLET PO PRN (12:50)
--- NOTE | 2018-12-21 15:07 | PATHOLOGY ---
[facility] Accession Number: [id number] . 01 Material submitted: . gallbladder - GALLBLADDER WITH CONTENTS . 01 Clinical history: . Symptomatic cholelithiasis . 02 Diagnosis: Gallbladder, laparoscopic cholecystectomy: - Cholelithiasis. - Acute and chronic cholecystitis with focally increased eosinophils. (JPM:heading and priming tool setter; 12/21/2018) MBR/12/21/2018 . 02 Comment: There is no evidence of malignancy. (JPM:heading and priming tool setter; 12/21/2018) . 02 Electronically signed: . Alpesh España MD, Pathologist NPI- [id number] . 01 Gross description: . The specimen is received in formalin, labeled "Brown, Louise, gallbladder with contents", is an intact gallbladder measuring 7.0 cm in length and 2.2 cm in maximum diameter with a casillas-yellow and glistening serosa. A 0.7 x 0.5 x 0.2 cm soft lymph node is identified in the region of the gallbladder neck. The cystic duct is patent. The gallbladder lumen is partially septated and contains casillas-brown scant bile and an oval irregularly surfaced green-brown calculus measuring 2.6 x 1.8 x 1.4 cm. The mucosa is casillas-brown focally hemorrhagic and with no cholesterolosis. The wall is 0.5 cm in average thickness. Representatively submitted in A1-A2. ([facility]; 12/20/2018) SHS/SHS . 02 Pathologist provided ICD-10: K80.12 . 02 CPT . 914375 Specimen Comment: A courtesy copy of this report has been sent to Specimen Comment: [phone], . Specimen Comment: Report sent to / DR HARE Performed at: 01 [facility] [address], [place], [place] [id number] MD Robin Gonzalez MD Phone: [phone] Performed at: 02 [facility] [address], [place] [id number] MD Alpesh España MD Phone: [phone]
[2018-12-23] MEDS ORDERED: CLIN150C14 PO (15:31)
== END 2018-12-20 13:55 | disposition home or self-care (01) ==
LOC: ER 12:04 → 5 NORTH 16:31
PROVIDERS: ADMIT Surgery; ATTEND Surgery
DX: K80.00 Calculus of gallbladder with acute cholecystitis without obstruction (principal); F17.210 Nicotine dependence, cigarettes, uncomplicated; E66.9 Obesity, unspecified; R11.2 Nausea with vomiting, unspecified; K76.0 Fatty (change of) liver, not elsewhere classified; K66.0 Peritoneal adhesions (postprocedural) (postinfection); R16.1 Splenomegaly, not elsewhere classified
CPT/HCPCS: 36415; 47563; 74300; 76700; 80053; 80307; 81001; 81025; 83690; 85007; 85025; 88304; 93005; 96361; 96372; 96374; 96375; 99284; A7015; G0378; G0480; J0330; J0690; J1100; J1650; J1720; J2001; J2405; J2704; J2710; J3490; J7030; J7120; Q9967; G0379; J1610; J3010

== ENCOUNTER 2019-01-04 17:45 | Emergency (ER) | payer SELFPAY ==
[~2019-01-04] VITALS: Ht 162.6 cm; Wt 99.8 kg
[~2019-01-04 17:45] MED LIST changes: +OXYC1TAB15 PO
[2019-01-04 18:02] VITALS: BP 144/84
--- NOTE | 2019-01-04 18:15 | PHYS DOC ---
Past Medical History Past Medical History: No Pertinent History Past Surgical History: Cholecystectomy Alcohol Use: None Drug Use: None Adult General Chief Complaint Chief Complaint: POST-OP PROBLEM HPI HPI Patient is a 23 year old female who presents for wound check, patient had a laparotomy cholecystectomy done around December 19, 2018, she states she missed a doctor's appointment for follow-up. She is requesting we look at the incision sites because they don't look right to her. Denies any fever. Denies any drainage from the incision sites. Review of Systems Review of Systems Constitutional: Denies fever or chills [] GI: Denies abdominal pain, nausea, vomiting, bloody stools or diarrhea [] : Denies dysuria or hematuria [] Musculoskeletal: Denies back pain or joint pain [] Integument: Visit for surgical incision check Neurologic: Denies headache, focal weakness or sensory changes [] All other systems were reviewed and found to be within normal limits, except as documented in this note. Allergies Allergies Allergies Coded Allergies Type Severity Reaction Last Updated Verified No Known Drug Allergies 10/30/18 No Physical Exam Physical Exam Constitutional: Well developed, well nourished, no acute distress, non-toxic appearance. [] Skin: Warm, dry, scabbed over laparoscopic incisions on the right side of the abdomen. No signs of infection. Back: No tenderness, no CVA tenderness. [] Extremities: No tenderness, no cyanosis, no clubbing, ROM intact, no edema. [] Neurologic: Alert and oriented X 3, normal motor function, normal sensory function, no focal deficits noted. [] Psychologic: Affect normal, judgement normal, mood normal. [] Current Patient Data Vital Signs Vital Signs Date Time Temp Pulse Resp B/P (MAP) Pulse Ox O2 Delivery O2 Flow Rate FiO2 01/04/19 18:02 98.2 96 16 144/84 (104) 97 Room Air 98.2 EKG EKG [] Radiology/Procedures Radiology/Procedures [] Course & Med Decision Making Course & Med Decision Making Pertinent Labs and Imaging studies reviewed. (See chart for details) This is a 23-year-old female patient who presents to the ED today for incision check for laparotomy cholecystectomy that was done around the of last month. The incision sites appears well, no signs of infection. Discharged to home. Dragon Disclaimer Dragon Disclaimer This electronic medical record was generated, in whole or in part, using a voice recognition dictation system. Departure Departure Impression: Primary Impression: Encounter for post surgical wound check Disposition: HOME, SELF-CARE Condition: STABLE Referrals: NO PCP (PCP) follow up with your doctor as soon as you can Patient Instructions: Wound Check DILCIA HARE APRN Jan 04, 2019 18:15
== END 2019-01-04 18:33 | disposition home or self-care (01) ==
LOC: ER 17:45
DX: Z48.01 Encounter for change or removal of surgical wound dressing (principal)
CPT/HCPCS: 99281

== ENCOUNTER 2019-05-26 18:43 | Emergency (ER) | payer SELFPAY | END 2019-05-26 21:50 | disposition left against medical advice (07) | LOC: ER 18:43 | DX: J02.9 Acute pharyngitis, unspecified (principal); Z53.21 Procedure and treatment not carried out due to patient leaving prior to being seen by health care provider ==

== ENCOUNTER 2019-05-26 20:26 | Emergency (ER) | payer SELFPAY | END 2019-05-26 22:09 | disposition left against medical advice (07) | LOC: ER 20:26 | DX: J02.9 Acute pharyngitis, unspecified (principal); Z53.21 Procedure and treatment not carried out due to patient leaving prior to being seen by health care provider ==

== ENCOUNTER 2019-10-02 11:27 | Emergency (ER) | payer SELFPAY ==
[~2019-10-02] VITALS: Ht 160 cm; Wt 109.0 kg
[2019-10-02 12:15] VITALS: BP 153/71
[2019-10-02] MEDS ORDERED: METH4TAB2 PO (12:42)
[2019-10-02] MEDS ORDERED: AMOX500C PO (12:42)
--- NOTE | 2019-10-02 12:42 | PHYS DOC ---
Past Medical History Past Medical History: No Pertinent History Past Surgical History: Cholecystectomy Smoking Status: Current Every Day Smoker Alcohol Use: None Drug Use: None General Adult EDM: Chief Complaint: SORE THROAT HPI: HPI: Patient is a 24 year old female who presents with patient states she woke up with a very sore throat this morning. Patient states it hurts to drink or eat food. She states she is able to drink and eat food. She denies fever, cough, abdominal pain, diarrhea, shortness of breath, chest pain, dizziness, headache. She is afebrile. Review of Systems: Review of Systems: HENT: Denies nasal congestion. + sore throat. [] Heart Score: Risk Factors: Risk Factors: DM, Current or recent (<one month) smoker, HTN, HLP, family history of CAD, obesity. Risk Scores: Score 0 - 3: 2.5% MACE over next 6 weeks - Discharge Home Score 4 - 6: 20.3% MACE over next 6 weeks - Admit for Clinical Observation Score 7 - 10: 72.7% MACE over next 6 weeks - Early Invasive Strategies Allergies: Allergies: Allergies Coded Allergies Type Severity Reaction Last Updated Verified No Known Drug Allergies 10/30/18 No Physical Exam: PE: Constitutional: Well developed, well nourished, no acute distress, non-toxic appearance. [] HENT: Normocephalic, atraumatic, bilateral external ears normal, oropharynx moist, no oral exudates, nose normal. Bilateral tonsils 2+ with exudates [] Eyes: PERRLA, EOMI, conjunctiva normal, no discharge. [] Neck: Normal range of motion, no tenderness, supple, no stridor. [] Cardiovascular:Heart rate regular rhythm, no murmur [] Lungs & Thorax: Bilateral breath sounds clear to auscultation [] Abdomen: Bowel sounds normal, soft, no tenderness, no masses, no pulsatile masses. [] Skin: Warm, dry, no erythema, no rash. [] Back: No tenderness, no CVA tenderness. [] Extremities: No tenderness, no cyanosis, no clubbing, ROM intact, no edema. [] Neurologic: Alert and oriented X 3, normal motor function, normal sensory function, no focal deficits noted. [] Psychologic: Affect normal, judgement normal, mood normal. [] Current Patient Data: Vital Signs: Vital Signs Date Time Temp Pulse Resp B/P (MAP) Pulse Ox O2 Delivery O2 Flow Rate FiO2 10/02/19 12:15 98.9 106 12 153/71 (98) 94 Room Air 98.9 EKG: EKG: [] Radiology/Procedures: Radiology/Procedures: [] Course & Med Decision Making: Course & Med Decision Making Pertinent Labs and Imaging studies reviewed. (See chart for details) Bilateral tonsils 2+ swelling. Uvula midline. No trismus. Bilateral tonsils have exudates. Lungs are clear to auscultation all lobes. Skin pink warm and dry. [] Dragon Disclaimer: Dragon Disclaimer: This electronic medical record was generated, in whole or in part, using a voice recognition dictation system. Departure Departure Impression: Primary Impression: Acute tonsillitis Qualified Codes: J03.90 - Acute tonsillitis, unspecified Disposition: HOME, SELF-CARE Condition: STABLE Referrals: NO PCP (PCP) Patient Instructions: Strep Throat, [id number] Additional Instructions: Follow up with primary care provider. Drink plenty of fluids. Take Tylenol or ibuprofen for your pain. Also use Chloraseptic spray that can buy [id number] to help with pain. Take medication as prescribed and with food. Scripts Methylprednisolone (MEDROL) 4 Mg Tab.ds.pk 1 PKG PO UD, #1 PKG Prov: TERRY SALINAS APRN 10/02/19 Amoxicillin (AMOXICILLIN) 500 Mg Capsule 1 CAP PO BID for 10 Days, #20 CAP Prov: TERRY SALINAS APRN 10/02/19 Justicifation of Admission Dx: Justifications for Admission: Justification of Admission Dx: N/A TERRY SALINAS APRN Oct 02, 2019 12:42
== END 2019-10-02 12:47 | disposition home or self-care (01) ==
LOC: ER 11:27
DX: J03.90 Acute tonsillitis, unspecified (principal); F17.200 Nicotine dependence, unspecified, uncomplicated
CPT/HCPCS: 87070; 87880; 99283